=== PATIENT | male | born 1990 | race African-American/Black ===

== ENCOUNTER 2019-01-15 19:58 | Emergency (ER) | payer MEDICAID ==
[2019-01-15] MEDS ORDERED: DEXAMETHASONE SOD PHOS INJ 10 MG/1 ML VIAL IM ONE (21:13)
--- NOTE | 2019-01-15 21:21 | ER Document Report ---
HPI - HPI Time Seen by Provider: 01/15/19 21:00 Pain Level: 4 Context: Patient is a 28-year-old male who presents emergency department with a chief complaint of sore throat. He has had a sore for the past 5 days. He has not taken any medications to help with his pain. He is a current everyday smoker. States it is difficult to swallow, but is able to swallow no difficulty. - ROS Notes: REVIEW OF SYSTEMS: CONSTITUTIONAL : Denies recent illness. Denies recent unintentional weight loss. Denies fever, chills, or sweats. EENT: See HPI CARDIOVASCULAR: Denies chest pain. RESPIRATORY: Denies shortness of breath, cough, congestion, difficulty breathing, or wheezing. GASTROINTESTINAL: Denies nausea, vomiting, and diarrhea. Denies abdominal pain. Denies constipation. GENITOURINARY: Denies difficulty urinating, burning, blood in urine, urgency or frequency. MUSCULOSKELETAL: Denies neck and back pain. Denies joint pain or swelling. SKIN: Denies rash, itchiness, or lesions HEMATOLOGIC : Denies easy bruising or bleeding. LYMPHATIC: Denies swollen, painful, enlarged glands. NEUROLOGICAL: Denies no numbness or tingling denies weakness. Denies headache. Denies altered mental status. Denies alteration in speech. PSYCHIATRIC: Denies stress, anxiety, alteration in sleep patterns, or depression. All other systems reviewed and negative. Past Medical History - Social History Smoking Status: Current Every Day Smoker Frequency of alcohol use: Occasional Drug Abuse: None Family History: None Psychiatric Medical History: Reports: Hx Anxiety, Hx Bipolar Disorder, Hx Depression - Immunizations Hx Diphtheria, Pertussis, Tetanus Vaccination: Yes Vertical Provider Document - CONSTITUTIONAL Agree With Documented VS: Yes Exam Limitations: No Limitations General Appearance: No Apparent Distress Notes: PHYSICAL EXAMINATION: GENERAL: Appears well, healthy, well-nourished, no acute distress. HEAD: Normocephalic, atraumatic. EYES: PERRL, conjunctiva normal, all extraocular movements intact, sclera nonicteric ENT: Moist mucous membranes. Edema and erythema noted to bilateral tonsils. Tonsillar exudate noted. Cerumen impaction noted to bilateral external auditory canals. NECK: Supple, no noticeable swelling, redness, rash. Normal range of motion. LUNGS: Equal breath sounds bilaterally and clear to auscultation. No wheezes rales or rhonchi. CARDIOVASCULAR: S1-S2, regular rate, regular rhythm. Radial pulses 2+, normal. ABDOMEN: Normoactive bowel sounds. Soft, nontender, no guarding, no rebound tenderness, and no masses palpated. EXTREMITIES: Normal strength and range of motion, no pitting or edema. No cyanosis. NEUROLOGICAL: Moves all extremities upon command. Strength 5/5 in all extremities. PSYCH: Normal mood, normal affect. SKIN: Warm, dry. No rash, lesions, ulcerations noted. Normal skin turgor. - INFECTION CONTROL TRAVEL OUTSIDE OF THE [place] IN LAST 30 DAYS: No Course - Re-evaluation Re-evalutation: 01/15/19 22:16 Patient's rapid strep is negative at this time. Due to the patient having tonsillar exudate, no given a dose of penicillin here in the emergency department. He will follow-up with his primary care provider on Thursday. I have also educated the patient on smoking cessation. Follow-up precautions were given. Verbal discharge instructions were given to the patient. They verbalized understanding. They are stable for discharge. - Vital Signs Vital signs: Temp Pulse Resp BP Pulse Ox 99.3 F 77 18 143/93 H 99 01/15/19 20:06 01/15/19 20:06 01/15/19 20:06 01/15/19 20:06 01/15/19 20:06 Discharge - Discharge Clinical Impression: Tonsillar exudate, Sore throat Cerumen impaction Qualifiers: Laterality: bilateral Qualified Code(s): H61.23 - Impacted cerumen, bilateral Condition: Stable Disposition: HOME, SELF-CARE Instructions: Sore Throat ([facility]) Additional Instructions: You were seen today in the emergency department for sore throat. You have been treated with antibiotics and steroids here in the emergency department. Please follow-up with your primary care provider in regards to this visit. If you have worsening symptoms, difficulty breathing, shortness of breath, or have any symptoms that are worrisome to you, please return to the emergency department. P lease stop smoking, as this does not help with a sore throat. Make sure you see a dentist regularly. You are also being given prescription for eardrops. Please use as directed for earwax impaction. Prescriptions: Carbamide Peroxide [Debrox 6.5 % Otic Drops 15 ml] 10 drop OT ASDIR PRN #1 bottle PRN Reason: Forms: Smoking Cessation Education Referrals: JUAN WRIGHT MD [Primary Care Provider] - Follow up in 3-5 days
[2019-01-15] MEDS ORDERED: PENICILLIN G BENZATHINE 1.2 MILLION UNIT/2 ML DISP.SYRIN IM ONE (22:18)
[2019-01-15 23:13] VITALS: BP 136/91
== END 2019-01-15 23:32 | disposition home or self-care (01) ==
LOC: ER 19:58
DX: J02.9 Acute pharyngitis, unspecified (principal); H61.23 Impacted cerumen, bilateral; R09.89 Other specified symptoms and signs involving the circulatory and respiratory systems; F17.200 Nicotine dependence, unspecified, uncomplicated
CPT/HCPCS: 99283; 96372; 87070; 87880; J0561; J1100

== ENCOUNTER 2019-03-27 09:50 | Emergency (ER) | payer MEDICAID ==
[2019-03-27 10:05] VITALS: BP 149/72
--- NOTE | 2019-03-27 10:23 | ER Document Report ---
HPI - HPI Patient complains to provider of: Sore throat Time Seen by Provider: 03/27/19 10:22 Onset: Yesterday Onset/Duration: Gradual Quality of pain: Achy Severity: Moderate Pain Level: 3 Context: 28 Yr old pt, with the listed pmh, here presenting with sore throat and low- grade fever for 2 days. patient states the pain is an 6/10 sharp achiness that increases with swallowing and decreases with rest. Patient states no acute respiratory distress. Patient states no difficulty swallowing or handling secretions. Patient denies any ear pain, cp, sob, vomiting, diarrhea, abd pain, vision changes, dizziness, rash, or headache. Patient states nothing is making the symptoms better and is here in the emergency department for symptom control. Patient denies any other complaints at this time. no recent antibiotics or steroids. no hx of diabetes or asthma. utd on shots. Similar symptoms previously: No Recently seen / treated by doctor: No - ROS Systems Reviewed and Negative: Yes All other systems reviewed and negative - to include 10 systems, unless mentioned in HPI Past Medical History - General Information source: Patient - Social History Smoking Status: Unknown if Ever Smoked Frequency of alcohol use: None Drug Abuse: None Family History: None Patient has suicidal ideation: No Patient has homicidal ideation: No Renal/ Medical History: Denies: Hx Peritoneal Dialysis Psychiatric Medical History: Reports: Hx Anxiety, Hx Bipolar Disorder, Hx Depression - Immunizations Immunizations up to date: Yes Hx Diphtheria, Pertussis, Tetanus Vaccination: Yes Vertical Provider Document - CONSTITUTIONAL Agree With Documented VS: Yes Exam Limitations: No Limitations General Appearance: No Apparent Distress Notes: Vital signs: All vital signs were reviewed per nursing notes. Gen. appearance: Nontoxic, patient of stated age, sitting comfortably in the bed. pleasant, young thin black male, smiling, speaking in full sentences, in no sign of pain or resp distress, mother at bedside Psychiatric: Alert and oriented x3, pleasant and very conversational, normal affect. Skin: Warm, pink, dry, normal turgor, no rashes. ENT: Normocephalic, atraumatic, pupils are equal and reactive to light, extraocular muscles intact, tympanic membranes normal, mucosal membranes moist, pink conjunctiva, there is moderate pharyngeal erythema and tonsillar exudate with hypertrophy bilaterally. There are no signs of abscess. The uvula is midline. There is no submandibular harness. There is no trismus. There is no tenderness over the sternocleidomastoid or thyroid cartilage. no drooling, tripoding, or hot potato voice Neck: Supple, no tenderness, mild bilateral anterior cervical lymphadenopathy. CV: Regular rate and rhythm, Lungs: Clear to auscultation bilaterally, no wheezes, symmetrical chest rise. Abdomen: Soft, nontender, nondistended, good bowel sounds, no rebound, rigidity, guarding, peritoneal signs or organomegally. No CVA tenderness bilaterally. This is a nonacute abdomen. No tenderness over McBurney's point. Back: no tenderness Extremities: Full rom, full strength, good pulses, normal gait, no swelling or ttp of extremities. good hand drawing checker. brisk cap refill. Neuro: Cranial nerves II through XII intact, normal speech, motor and sensation intact - INFECTION CONTROL TRAVEL OUTSIDE OF THE [place] IN LAST 30 DAYS: No Course - Re-evaluation Re-evalutation: 03/27/19 12:01 Pt here for sore throat since yesterday. His rapid strep was positive. He was given Decadron, Tylenol, and penicillin G IM here with improvement of his symptoms. Advised symptomatic care. Advised salt water gargles. Will discharge him with [employer]'s Magic mouthwash. Advised to change his toothbrush. Push fluids. Tylenol or Motrin as needed for any pain or fever. Strict return precautions given. advised to f/u with pcp in 1-2 days. return for any worsening symptoms. vss. well appearing. satting well on ra. neurononfocal. pt understands and agrees to plan. On reexam, pt improved with tx listed. remained stable. nontoxic. well appearing. pain controlled. tolerating po. requesting to go home. Documentation achieved through voice recording which may lead to some occasional accidental typographical errors. Extensive efforts have been made to proof read documentation to make sure these are the least as possible. Category Date Time Status Rapid Strep [DIRECT STREP,RAPID] [MO] Stat Lab 03/27/19 10:10 Completed Acetaminophen [Tylenol 325 mg Tablet] Med 03/27/19 10:36 Discontinued 975 mg PO NOW ONE Dexamethasone [Decadron Conc 1 mg/ml Soln] Med 03/27/19 10:36 Discontinued 10 mg PO NOW ONE Penicillin G Benzathine [Bicillin LA Inj 1.2 Million Med 03/27/19 10:59 Discontinued Unit/2 ml Disp.sy] 1,200,000 unit IM NOW ONE 03/27/19 12:02 - Vital Signs Vital signs: Temp Pulse Resp BP Pulse Ox 100.1 F 113 H 13 149/72 H 98 03/27/19 10:03 03/27/19 10:03 03/27/19 10:03 03/27/19 10:03 03/27/19 10:03 03/27/19 12:03 Temp Pulse Resp BP Pulse Ox 03/27/19 10:03 100.1 F 113 H 13 149/72 H 98 - Laboratory Laboratory results interpreted by me: 03/27/19 12:03 Labs- Entire Visit 03/27/19 10:10 Group A Strep Rapid POSITIVE Discharge - Discharge Clinical Impression: Strep throat Condition: Good Disposition: HOME, SELF-CARE Instructions: Strep Throat ([facility]) Additional Instructions: Follow-up with PCP in 1 to 2 days. Return for any worsening symptoms. tylenol or motrin as needed for any pain or fever if not allergic. take the medication as prescribed. salt water gargles. drink plenty of fluids. change your tooth brush. Prescriptions: Nystatin/Dexameth/Diphen [Magic Mouthwash ([facility] Formula) Susp] 5 ml PO QID PRN #120 ml PRN Reason: For Sore Throat Referrals: JUAN WRIGHT MD [Primary Care Provider] - Follow up as needed
[2019-03-27] MEDS ORDERED: ACETAMINOPHEN 325 MG TABLET PO ONE (10:36)
[2019-03-27] MEDS ORDERED: DEXAMETHASONE CONC 1 MG/ML SOLN PO ONE (10:36)
[2019-03-27] MEDS ORDERED: PENICILLIN G BENZATHINE 1.2 MILLION UNIT/2 ML DISP.SYRIN IM ONE (10:59)
== END 2019-03-27 11:15 | disposition home or self-care (01) ==
LOC: ER 09:50
DX: J02.0 Streptococcal pharyngitis (principal); R50.9 Fever, unspecified
CPT/HCPCS: 99283; 96372; 87880; J3490; J0561; J8540

== ENCOUNTER 2019-04-30 20:40 | Emergency (ER) | payer MEDICAID ==
--- NOTE | 2019-04-30 20:57 | ER Document Report ---
ED Medical Screen (RME) - General Chief Complaint: Penile Pain Stated Complaint: GENITAL PAIN Time Seen by Provider: 04/30/19 20:52 Primary Care Provider: JUAN WRIGHT MD [Primary Care Provider] - Follow up as needed Mode of Arrival: Ambulatory Information source: Patient Notes: 29-year-old male presents to ED for complaint of burning and itching with urination. He states he also has a swollen tender area just behind his scrotum. He states he does have a history of depression and high blood pressure. He denies any surgeries. 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 He states he does live with his aunt and does not do any drugs. Patient is alert and oriented questions regular and unlabored. I have greeted and performed a rapid initial assessment of this patient. A comprehensive ED assessment and evaluation of the patient, analysis of test results and completion of medical decision making process will be conducted by an additional ED providers. I have greeted and performed a rapid initial assessment of this patient. A comprehensive ED assessment and evaluation of the patient, analysis of test results and completion of medical decision making process will be conducted by an additional ED providers. TRAVEL OUTSIDE OF THE [place] IN LAST 30 DAYS: No - Related Data Allergies/Adverse Reactions: No Known Allergies Allergy (Verified 03/27/19 09:51) Past Medical History Renal/ Medical History: Denies: Hx Peritoneal Dialysis Psychiatric Medical History: Reports: Hx Anxiety, Hx Bipolar Disorder, Hx Depression - Immunizations Immunizations up to date: Yes Hx Diphtheria, Pertussis, Tetanus Vaccination: Yes Physical Exam - Vital signs Vitals: Temp Pulse Resp BP Pulse Ox 99.2 F 75 18 139/88 H 100 04/30/19 20:52 04/30/19 20:52 04/30/19 20:52 04/30/19 20:52 04/30/19 20:52 Course - Vital Signs Vital signs: Temp Pulse Resp BP Pulse Ox 99.2 F 75 18 139/88 H 100 04/30/19 20:52 04/30/19 20:52 04/30/19 20:52 04/30/19 20:52 04/30/19 20:52 Doctor's Discharge - Discharge Referrals: JUAN WRIGHT MD [Primary Care Provider] - Follow up as needed
[2019-04-30 21:10] LABS: AMORPHOUS SEDIMENT,URINE TRACE /HPF; APPEARANCE,URINE TURBID; BILIRUBIN,URINE NEGATIVE (NEGATIVE); COLOR,URINE YELLOW; GLUCOSE, URINE NEGATIVE (NEGATIVE); KETONES,URINE NEGATIVE (NEGATIVE); LEUKOCYTE ESTERASE,URINE MODERATE (NEGATIVE); NITRITE,URINE NEGATIVE (NEGATIVE); PROTEIN,URINE NEGATIVE (NEGATIVE); URINE SPECIFIC GRAVITY 1.017; UROBILINOGEN,URINE NEGATIVE mg/dL (<2.0)
--- NOTE | 2019-04-30 21:30 | ER Document Report ---
HPI - HPI Patient complains to provider of: burn with void, itchy groin area, bump on thigh Time Seen by Provider: 04/30/19 20:52 Onset: Other Onset/Duration: Persistent Pain Level: 3 Context: 29-year-old male presents to the emergency department with complaints in his groin itchy, burning with void occasionally, swelling to the left medial thigh. Denies history of MRSA. Denies fever vomiting diarrhea. Denies penile discharge. Denies testicular pain. Associated Symptoms: None Exacerbated by: Denies Relieved by: Denies Similar symptoms previously: No Recently seen / treated by doctor: No Past Medical History - General Information source: Patient - Social History Smoking Status: Current Every Day Smoker Cigarette use (# per day): Yes Chew tobacco use (# tins/day): No Frequency of alcohol use: Occasional Drug Abuse: None Family History: None Patient has suicidal ideation: No Patient has homicidal ideation: No Renal/ Medical History: Denies: Hx Peritoneal Dialysis Psychiatric Medical History: Reports: Hx Anxiety, Hx Bipolar Disorder, Hx Depression Surgical Hx: Negative - Immunizations Immunizations up to date: Yes Hx Diphtheria, Pertussis, Tetanus Vaccination: Yes Vertical Provider Document - CONSTITUTIONAL Agree With Documented VS: Yes Exam Limitations: No Limitations General Appearance: WD/WN, No Apparent Distress - INFECTION CONTROL TRAVEL OUTSIDE OF THE [place] IN LAST 30 DAYS: No - HEENT HEENT: Atraumatic, Normocephalic - NECK Neck: Normal Inspection, Supple. negative: Lymphadenopathy-Left, Lymphadenopathy-Right - RESPIRATORY Respiratory: Breath Sounds Normal, No Respiratory Distress - CARDIOVASCULAR Cardiovascular: Regular Rate, Regular Rhythm - GI/ABDOMEN Gastrointestinal: Abdomen Soft, Abdomen Non-Tender - REPRODUCTIVE Male Genitalia: Normal Inspection - no open sores, no erythema, no scaling Notes: witness by burton pct - BACK Back: Normal Inspection - MUSCULOSKELETAL/EXTREMETIES Musculoskeletal/Extremeties: MAEW, FROM, Non-Tender - NEURO Level of Consciousness: Awake, Alert, Appropriate Motor/Sensory: No Motor Deficit - DERM Integumentary: Warm, Dry, Abscess Adult Front & Back Diagram: 1 - 2 small fluctuant abscesses noted to patient left inner thigh Course - Re-evaluation Re-evalutation: 04/30/19 22:00 This 29-year-old male presents emergency department with burning with void occasionally itchy groin area and abscess to his left thigh. Reports abscess been there approximately 1 week. I&D of the abscess was completed with very little drainage. Culture was obtained. Patient was instructed on the importance of returning to the emergency department should the abscess become bigger larger. He was also instructed on Septra signs and symptoms of allergic reaction. He verbalized understanding to all instructions. Urine Color YELLOW 04/30/19 20:50 Urine Appearance TURBID 04/30/19 20:50 Urine pH 7.0 (5.0-9.0) 04/30/19 20:50 Ur Specific [place] 1.017 04/30/19 20:50 Urine Protein NEGATIVE mg/dL (NEGATIVE) 04/30/19 20:50 Urine Glucose (UA) NEGATIVE mg/dL (NEGATIVE) 04/30/19 20:50 Urine Ketones NEGATIVE mg/dL (NEGATIVE) 04/30/19 20:50 Urine Blood NEGATIVE (NEGATIVE) 04/30/19 20:50 Urine Nitrite NEGATIVE (NEGATIVE) 04/30/19 20:50 Ur Leukocyte Esterase MODERATE (NEGATIVE) H 04/30/19 20:50 Urine WBC (Auto) 90 /HPF 04/30/19 20:50 Urine RBC (Auto) 11 /HPF 04/30/19 20:50 - Vital Signs Vital signs: Temp Pulse Resp BP Pulse Ox 99.2 F 75 18 139/88 H 100 04/30/19 20:52 04/30/19 20:52 04/30/19 20:52 04/30/19 20:52 04/30/19 20:52 - Laboratory Laboratory results interpreted by me: 04/30/19 20:50 Ur Leukocyte Esterase MODERATE H Urine Ascorbic Acid 40 H Procedures - Incision and Drainage Left Thigh Type: Simple Anesthetic type: 1% Lidocaine mL's of anesthetic: 2 Blade size: 11 I&D procedure: Shurclens applied Incision Method: Incision made by scalpel Amount/type of drainage: very little drainage Notes: 04/30/19 21:59 Area injected with lidocaine vertical incisions made with scalpel very little drainage obtained area probed well with hemostats without results. Patient tolerated procedure well. Discharge - Discharge Clinical Impression: Abscess with incision and drainage UTI (urinary tract infection) Qualifiers: Urinary tract infection type: site unspecified Hematuria presence: without hematuria Qualified Code(s): N39.0 - Urinary tract infection, site not specified Condition: Stable Disposition: HOME, SELF-CARE Instructions: Abscess ([facility]), Post Incision and Drainage, Trimethoprim-Sulfa ([facility]), Urinary Tract Infection ([facility]) Additional Instructions: *You have been treated for an abscess with incision and drainage, UTI *Take medication as prescribed, take ibuprofen or Tylenol as indicated for pain *Monitor the site for signs of increasing infection such as increasing pain, redness, swelling, warmth *Wash the site twice daily as discussed, Keep the site clean *Follow up with a primary care provider within one week *Return to ED for signs of increasing infection, worsening condition, changes, needs Monitor your blood pressure. Your blood pressure was elevated today. This may be because you were anxious, in pain or because you need medication. It is important to follow up with your primary care provider for full evaluation. Prescriptions: Sulfamethoxazole/Trimethoprim [Bactrim Ds Tablet] 1 each PO BID #20 tablet Forms: Elevated Blood Pressure, Smoking Cessation Education Referrals: JUAN WRIGHT MD [Primary Care Provider] - Follow up in 1 week
[2019-04-30 22:12] VITALS: BP 139/93
== END 2019-04-30 22:13 | disposition home or self-care (01) ==
LOC: ER 20:40
DX: L02.416 Cutaneous abscess of left lower limb (principal); N39.0 Urinary tract infection, site not specified; L29.9 Pruritus, unspecified; F17.210 Nicotine dependence, cigarettes, uncomplicated
CPT/HCPCS: 81001; 87070; 87075; 87077; 87086; 87186; 87205; 99283

== ENCOUNTER 2019-09-24 20:20 | Emergency (ER) | payer MEDICAID ==
--- NOTE | 2019-09-24 20:45 | ER Document Report ---
HPI - HPI Time Seen by Provider: 09/24/19 20:39 Notes: Patient is a 29-year-old male with history of depression and tobacco abuse who presents complaining of having nasal congestion/discharge and a dry cough that began about 5 days ago. Patient states that he is feeling overall better and needs a work note. Denies drug allergies. He has no other concerns or complaints. Denies any headache, fever, neck pain, sore throat, chest pain, palpitations, syncope, shortness of breath, wheeze, dyspnea, abdominal pain, nausea/vomiting/diarrhea, urinary retention, dysuria, hematuria, or rash. - ROS Systems Reviewed and Negative: Yes All other systems reviewed and negative Past Medical History - Social History Smoking Status: Current Every Day Smoker Family History: None Renal/ Medical History: Denies: Hx Peritoneal Dialysis Psychiatric Medical History: Reports: Hx Anxiety, Hx Bipolar Disorder, Hx Depression - Immunizations Immunizations up to date: Yes Hx Diphtheria, Pertussis, Tetanus Vaccination: Yes Vertical Provider Document - CONSTITUTIONAL Agree With Documented VS: Yes Notes: PHYSICAL EXAMINATION: GENERAL: Well-appearing, well-nourished and in no acute distress. A&Ox4. Answers questions appropriately. Moves comfortably w/o notable distress HEAD: Atraumatic, normocephalic. EYES: Pupils equal round and reactive to light, extraocular movements intact, sclera anicteric, conjunctiva are normal. ENT: Nares patent and with clear discharge. oropharynx no erythema without exudates. No tonsilar hypertrophy without erythema or exudate. No palatine shift. Uvula midline. No tongue protrusion. No drooling, hoarseness, or airway compromise. Moist mucous membranes. No sinus tenderness. NECK: Normal range of motion, supple without lymphadenopathy. No rigidity/meningismus. LUNGS: Breath sounds clear to auscultation bilaterally and equal. No wheezes rales or rhonchi. No retractions HEART: Regular rate and rhythm without murmurs, rubs, gallops. ABDOMEN: Soft, nontender, nondistended abdomen. No guarding, no rebound. Normal bowel sounds present. No CVA tenderness bilaterally. NEUROLOGICAL: Normal speech, normal gait. PSYCH: Normal mood, normal affect. SKIN: Warm, Dry, normal turgor, no rashes or lesions noted. - INFECTION CONTROL TRAVEL OUTSIDE OF THE [place] IN LAST 30 DAYS: No Course - Re-evaluation Re-evalutation: 09/24/19 20:44 Patient is an afebrile, well-hydrated, 27-year-old male who presents to the emergency department with an acute URI, suspect viral. Patient states that he is just here primarily for a work note. He has been feeling much better throughout the week. Vitals are acceptable without significant tachycardia, tachypnea, or hypoxia. PE is otherwise unremarkable. He is nontoxic-appearing and is tolerating p.o. without difficulty. Lungs are clear to auscultation bilaterally. No labs or imaging warranted at this time. Low suspicion for any meningitis, sepsis, peritonsillar/pharyngeal abscess, respiratory compromise, Dre's, or other emergent systemic condition at this time. Patient is aware this condition can change from initial presentation and he needs to monitor symptoms closely. Conservative measures otherwise for symptoms. Recheck with your PCM in 3-5 days. Return to the ED with any worsening/concerning symptoms otherwise as reviewed in discharge. Patient is in agreement. Discharge - Discharge Clinical Impression: Acute URI Condition: Stable Disposition: HOME, SELF-CARE Instructions: Upper Respiratory Illness ([facility]) Additional Instructions: Maintain adequate fluid intake tylenol/ibuprofen as needed alternating every 3 hours for fever/body ache over the counter cold medication as needed for symptoms Humidified air may help Wash your hands regularly Wear a mask when coughing F/u: with your PCM in 3-5 days for a recheck Return to the ED with any fever, altered mental status/behavior, chest pain, palpitations, syncope, headache, neck pain/stiffness, shortness of breath, chest pains, wheezing, drooling, trouble swallowing/breathing, abdominal pain, n/v/d, rash, or worsening/concerning symptoms otherwise. Forms: Smoking Cessation Education, Elevated Blood Pressure, Return to Work Referrals: JUAN WRIGHT MD [Primary Care Provider] - Follow up as needed
[2019-09-24 20:54] VITALS: BP 147/86
== END 2019-09-24 21:00 | disposition home or self-care (01) ==
LOC: ER 20:20
DX: J06.9 Acute upper respiratory infection, unspecified (principal); R09.81 Nasal congestion; F17.200 Nicotine dependence, unspecified, uncomplicated
CPT/HCPCS: 99283

== ENCOUNTER 2019-12-03 03:23 | Emergency (ER) | payer MEDICAID ==
[2019-12-03] MEDS ORDERED: MECLIZINE HCL 25 MG TABLET PO ONE (04:10)
--- NOTE | 2019-12-03 04:11 | ER Document Report ---
ED Dizziness/Weakness - General Chief Complaint: Dizziness Stated Complaint: DIZZINESS Time Seen by Provider: 12/03/19 03:59 Primary Care Provider: CANDELARIO CRAWFORD MD [ACTIVE STAFF] - Follow up as needed JUAN WRIGHT MD [Primary Care Provider] - Follow up as needed Mode of Arrival: Ambulatory Information source: Patient Notes: Patient states that he woke up around 1:00 in the morning and he felt dizzy. Patient states that in writing to the hospital his dizzy symptoms resolved. Patient states that he did become a little anxious while riding here but it is s merrill resolved. Patient denies any loss of consciousness nausea or vomiting. Patient states that the dizziness presented with a rotational movement. Patient denies any sinus problems or congestion. TRAVEL OUTSIDE OF THE [place] IN LAST 30 DAYS: No - HPI Patient complains to provider of: Dizziness Onset: This morning Onset/Duration: Gone Quality of pain: No pain Associated symptoms: Dizzy, Vertigo. denies: Chest pain, Confused, Almost fainted, Vomiting Baseline gait: Walks w/o assistance - Related Data Allergies/Adverse Reactions: No Known Allergies Allergy (Verified 03/27/19 09:51) Home Medications: bentrophine. abilify. saphris. lisinopril Past Medical History - General Information source: Patient - Social History Smoking Status: Current Every Day Smoker Frequency of alcohol use: Occasional Drug Abuse: None Occupation: None Lives with: Family Family History: None Patient has homicidal ideation: No - Past Medical History Cardiac Medical History: Reports: Hx Hypertension Renal/ Medical History: Denies: Hx Peritoneal Dialysis Psychiatric Medical History: Reports: Hx Anxiety, Hx Bipolar Disorder, Hx Depression Surgical Hx: Negative - Immunizations Immunizations up to date: Yes Hx Diphtheria, Pertussis, Tetanus Vaccination: Yes Review of Systems - Review of Systems Constitutional: No symptoms reported. denies: Fever EENT: No symptoms reported Cardiovascular: Dizziness. denies: Chest pain, Dyspnea, Syncope Respiratory: No symptoms reported. denies: Cough Gastrointestinal: No symptoms reported. denies: Abdominal pain, Nausea, Vomiting Genitourinary: No symptoms reported Male Genitourinary: No symptoms reported Musculoskeletal: No symptoms reported. denies: Back pain Skin: No symptoms reported Hematologic/Lymphatic: No symptoms reported Neurological/Psychological: No symptoms reported Physical Exam - Vital signs Vitals: Temp Pulse Resp BP Pulse Ox 98.8 F 94 16 150/86 H 100 12/03/19 03:27 12/03/19 03:27 12/03/19 03:27 12/03/19 03:27 12/03/19 03:27 - General General appearance: Appears well, Alert In distress: None - HEENT Head: Normocephalic, Atraumatic Eyes: Normal Conjunctiva: Normal Ears: Normal Nasal: Normal. No: Clear rhinorrhea Mouth/Lips: Normal Mucous membranes: Normal Pharynx: Normal Neck: Normal, Supple. No: Lymphadenopathy - Respiratory Respiratory status: No respiratory distress Chest status: Nontender Breath sounds: Normal. No: Rales, Rhonchi, Stridor Chest palpation: Normal - Cardiovascular Rhythm: Regular. No: Tachycardia Heart sounds: S1 appreciated, S2 appreciated - Back Back: Normal, Nontender - Extremities General upper extremity: Normal inspection, Normal strength General lower extremity: Normal inspection, Normal strength - Neurological Neuro grossly intact: Yes Cognition: Normal [place] Coma Scale Eye Opening: Spontaneous Rafa Coma Scale Verbal: Oriented [place] Coma Scale Motor: Obeys Commands [place] Coma Scale Total: 15 - Psychological Associated symptoms: Normal affect, Normal mood - Skin Skin Temperature: Warm Skin Moisture: Dry Skin Color: Normal Course - Re-evaluation Re-evalutation: 12/03/19 06:[address] ramos regarding patient presentation diagnostic evaluation. Recommends adding on troponin and CPK at this time. 12/03/19 07:51 Patient continues to deny any complaints at this time. Consulted with Dr. Crawford regarding patient's EKG. Dr. Crawford states he will return call 12/03/19 08:[address] Crawford who feels that patient's EKG could either be a possible mild pericarditis although he would expect to see more prominent changes versus mild early repolarization pattern. Consulted with Dr. ramos who agrees with plan to start patient on aspirin and encourage outpatient follow-up with recreation officer. - Vital Signs Vital signs: Temp Pulse Resp BP Pulse Ox 98.8 F 94 16 150/86 H 100 12/03/19 03:31 12/03/19 03:41 12/03/19 03:41 12/03/19 03:41 12/03/19 03:41 - Laboratory Result Diagrams: 12/03/19 04:58 12/03/19 04:58 Laboratory results interpreted by me: 12/03/19 12/03/19 04:58 04:58 WBC 11.5 H RDW 15.0 H Chloride 108 H Glucose 126 H Labs- Entire Visit 12/03/19 12/03/19 12/03/19 04:58 04:58 04:58 WBC 11.5 H RBC 4.94 Hgb 16.0 Hct 46.2 MCV 94 MCH 32.3 MCHC 34.6 RDW 15.0 H Plt Count 217 Lymph % (Auto) 20.4 [place] % (Auto) 8.6 Eos % (Auto) 1.2 Baso % (Auto) 0.7 Absolute Neuts (auto) 7.9 Absolute Lymphs (auto) 2.3 Absolute Monos (auto) 1.0 Absolute Eos (auto) 0.1 Absolute Basos (auto) 0.1 Seg Neutrophils % 69.1 Sodium 137.5 Potassium 4.4 Chloride 108 H Carbon Dioxide 25 Anion Gap 5 BUN 20 Creatinine 0.88 Est GFR ( Amer) > 60 Est GFR (MDRD) Non-Af > 60 Glucose 126 H Calcium 9.6 Creatine Kinase 170 Troponin I 12/03/19 06:47 WBC RBC Hgb Hct MCV MCH MCHC RDW Plt Count Lymph % (Auto) [place] % (Auto) Eos % (Auto) Baso % (Auto) Absolute Neuts (auto) Absolute Lymphs (auto) Absolute Monos (auto) Absolute Eos (auto) Absolute Basos (auto) Seg Neutrophils % Sodium Potassium Chloride Carbon Dioxide Anion Gap BUN Creatinine Est GFR ( Amer) Est GFR (MDRD) Non-Af Glucose Calcium Creatine Kinase Troponin I < 0.012 - Diagnostic Test Radiology reviewed: Reports reviewed - EKG Interpretation by [facility] EKG shows normal: Sinus rhythm Voltage: Increased voltage Additional EKG results interpreted by me: 12/03/19 06:22 QTc 402 Discharge - Discharge Clinical Impression: Dizziness Condition: Stable Disposition: HOME, SELF-CARE Instructions: Dizziness ([facility]), Meclizine ([facility]), Vertigo ([facility]) Additional Instructions: Return immediately for any new or worsening symptoms Followup with your primary care provider, call tomorrow to make a followup appointment Follow-up with recreation officer for recheck, call Thursday to make a follow-up appointment Take an aspirin tablet each day, cardiology will advise you regarding any continued need for dosing. Prescriptions: Meclizine HCl [Antivert 25 mg Tablet] 25 mg PO ASDIR PRN #12 tablet PRN Reason: Referrals: JUAN WRIGHT MD [Primary Care Provider] - Follow up as needed CANDELARIO CRAWFORD MD [ACTIVE STAFF] - 12/05/19
[2019-12-03 05:17] LABS: ABSOLUTE BASOPHILS # (AUTO) 0.1 10^3/uL (0.0-0.2); ABSOLUTE EOSINOPHILS # (AUTO) 0.1 10^3/uL (0.0-0.6); ABSOLUTE LYMPHOCYTES (AUTO) 2.3 10^3/uL (0.5-4.7); ABSOLUTE NEUT (AUTO) 7.9 10^3/uL (1.7-8.2); BASOPHILS % (AUTO) 0.7 % (0-2); EOSINOPHILS % (AUTO) 1.2 % (0-6); HEMATOCRIT 46.2 % (37.9-51.0); LYMPHOCYTES % (AUTO) 20.4 % (13-45); MEAN CORPUSCULAR HEMOGLOBIN 32.3 pg (27.0-33.4); MEAN CORPUSCULAR HGB CONC 34.6 g/dL (32.0-36.0); MEAN CORPUSCULAR VOLUME 94 fl (80-97); MONOCYTES % (AUTO) 8.6 % (3-13); PLATELET COUNT 217 10^3/uL (150-450); RED BLOOD COUNT 4.94 10^6/uL (4.35-5.55); SEGMENTED NEUTROPHILS % (AUTO) 69.1 % (42-78); TOTAL CELLS COUNTED % (AUTO) 100 %; WHITE BLOOD COUNT 11.5 10^3/uL (4.0-10.5)
[2019-12-03 05:24] LABS: ANION GAP 5 (5-19); BLOOD UREA NITROGEN 20 mg/dL (7-20); CALCIUM 9.6 mg/dL (8.4-10.2); CARBON DIOXIDE 25 mmol/L (22-30); CHLORIDE 108 mmol/L (98-107); GLUCOSE 126 mg/dL (75-110); POTASSIUM 4.4 mmol/L (3.6-5.0)
--- NOTE | 2019-12-03 07:14 | RADIOLOGY REPORT (SQ) ---
EXAM: XR Chest, 1 View EXAM DATE/TIME: 12/03/2019 7:00 AM CLINICAL HISTORY: The patient is 29 years old and is Male; dizziness TECHNIQUE: Frontal view of the chest. COMPARISON: Chest radiograph from 09/23/2015 FINDINGS: LUNGS: Unremarkable. No consolidation. PLEURAL SPACE: Unremarkable. No pneumothorax. HEART: No significant enlargement of the cardiac silhouette. MEDIASTINUM: Unremarkable. BONES/JOINTS: No acute osseous findings. IMPRESSION: No acute findings visualized in the chest.
[2019-12-03] MEDS ORDERED: ASPIRIN 325 MG TABLET PO ONE (08:21)
[2019-12-03 08:35] VITALS: BP 148/88
--- NOTE | 2019-12-03 08:48 | EKG REPORT ---
SEVERITY:- OTHERWISE NORMAL ECG - SINUS RHYTHM ST ELEVATION SUGGESTS NORMAL VARIANT : Confirmed by: Geovany Kc MD 03-Dec-2019 08:47:36
--- NOTE | 2019-12-03 08:49 | EKG REPORT ---
SEVERITY:- ABNORMAL ECG - SINUS RHYTHM PROBABLE LEFT ATRIAL ABNORMALITY PROBABLE LEFT VENTRICULAR HYPERTROPHY ST ELEVATION SUGGESTS PERICARDITIS : Confirmed by: Geovany Kc MD 03-Dec-2019 08:47:56
== END 2019-12-03 08:35 | disposition home or self-care (01) ==
LOC: ER 03:23
DX: R42 Dizziness and giddiness (principal); I10 Essential (primary) hypertension; F31.9 Bipolar disorder, unspecified; Z79.899 Other long term (current) drug therapy; F17.200 Nicotine dependence, unspecified, uncomplicated
CPT/HCPCS: 36415; 71045; 80048; 82550; 84484; 85025; 93005; 93010; 99284